=== PATIENT | male | born 1995 | race Asian ===

== ENCOUNTER 2016-05-25 16:44 | Emergency (ER) | payer OTHER ==
[~2016-05-25] VITALS: Ht 175.3 cm; Wt 78.6 kg
[2016-05-25 16:46] VITALS: BP 145/89; PULSE 90; TEMP 36.6; O2SAT 100; Ht 175.3 cm; Wt 78.6 kg
--- NOTE | 2016-05-25 18:44 | EMERGENCY ROOM VISIT NOTE ---
History First contact with patient: 17:00 Chief Complaint: RASH Stated Complaint: SPOTS ON THE SKIN History of Present Illness The patient is a 20 year old male who presents to the Emergency Room with complaints of an itchy rash that started this morning. He woke up with the rash. He denies using any new topical products. He also denies consuming any new foods or drinks. He has not had any recent runny nose, congestion, sore throat or cough. He denies any similar reactions in the past. He denies any pain or drainage from his rash. Review of Systems 10 system review was performed and was negative except for pertinent positives and negatives as indicated in history of present illness Past Medical/Surgical History Medical Problems: (1) No significant past medical history Surgical Problems: (1) No history of previous surgery Family History No significant family history Social History Smoking Status: Never Smoker Alcohol Use: none Marital Status: single Occupation Status: employed Physical Exam Vital Signs Date Time Temp Pulse Resp B/P Pulse Ox O2 Delivery O2 Flow Rate FiO2 05/25/16 16:46 36.6 90 18 145/89 100 Room Air Pain Rating (0-10): 0 Physical Exam CONSTITUTIONAL: Healthy and well nourished. Alert and oriented X 3 with positive affect. HEENT: Normocephalic, atraumatic. Pupils equal, round and reactive. NECK: Full active range of motion without discomfort. RESPIRATORY: Clear to auscultation bilaterally with no wheezing, crackles, rhonchi or stridor. CARDIOVASCULAR: Regular rate and rhythm with no murmurs, rubs or gallops. MUSCULOSKELETAL: Full range of motion of all joints without discomfort. INTEGUMENTARY: Examination shows skin presentation consistent with hives on the left forearm and legs. He also has similar appearance on the torso that is more widespread. No excoriations, vesicles or pustules. NEUROLOGIC: No focal neurologic deficits noted. Medical Decision & Procedures ED Course Patient history and physical exam were performed. Nurse's notes were reviewed. The patient was advised that his rash is consistent with hives. He was provided an ice pack to apply to areas of worst itch and swelling. He was also encouraged to take Benadryl for additional antihistamine relief. He was also instructed to keep cool and avoid hot showers. The patient reports that he has been assigned to Dr. Beaulieu with his insurance, but has not contacted their office for an appointment. He was encouraged to follow-up within is needed for further management. The patient was happy with plan of care, and voiced understanding of all discharge instructions. He refused any Benadryl in the emergency department. Medical Decision Impression Primary Impression: Hives Departure Information Dispostion Home / Self-Care Condition GOOD Referrals Harry Beaulieu M.D. Forms HOME CARE DOCUMENTATION FORM, IMPORTANT VISIT INFORMATION Patient Instructions My [facility], Diphenhydramine Hydrochloride Oral tablet Additional Instructions Benadryl (diphenhydramine) 25-50 mg every 6 hrs for itch. Do not drink or drive while taking Benadryl. Intermittently apply an ice pack for relief of localized swelling and itch. Keep cool - no hot showers. Follow-up with your family doctor (Dr. Beaulieu) in 3-5 days, and especially if symptoms/rash persists longer than 7 days.
== END 2016-05-25 17:20 | disposition home or self-care (01) ==
LOC: C.EDB 16:45 → C.EDD 17:20
DX: L50.9 Urticaria, unspecified (principal)

== ENCOUNTER 2016-10-22 15:44 | Emergency (ER) | payer OTHER ==
[~2016-10-22] VITALS: Ht 177.8 cm; Wt 74.7 kg
[2016-10-22 15:49] VITALS: Ht 177.8 cm; Wt 74.7 kg
[2016-10-22] MEDS ORDERED: SODIUM CHLORIDE 0.9% 1000ML 1,000 ML IV STA (16:04)
[2016-10-22] MEDS ORDERED: DiphenhydrAMINE HCL 50 MG/ML VIAL IV STA (16:04)
[2016-10-22] MEDS ORDERED: PROCHLORPERAZINE 5 MG/ML 2 ML VIAL IV STA (16:04)
[2016-10-22] MEDS ORDERED: KETOROLAC TROMETHAMINE 30 MG/ML VIAL IV STA (16:04)
--- NOTE | 2016-10-22 16:07 | EMERGENCY ROOM VISIT NOTE ---
History Report prepared by Olga: Ale Bright Under the Supervision of: Dr. Garrett Guidry M.D. First contact with patient: 15:57 Chief Complaint: FEVER Stated Complaint: HIGH TEMP IN WHOLE BODY, PAIN IN BONE, DIARRHEA History of Present Illness The patient is a 21 year old male who presents to the Emergency Room with complaints of persistent headache starting last night. He denies any history of frequent headaches. The patient also reports fevers and generalized body aches. He rates a pain intensity of 5/10. He denies runny nose, cough, sore throat, or any other complaints. Source of History: patient Onset: last night Position: head Symptom Intensity: 5/10 Timing: other (persistent) Associated Symptoms: + fevers, + neck pain, No sorethroat, No cough Review of Systems See HPI for pertinent positives & negatives. A total of 10 systems reviewed and were otherwise negative. Past Medical & Surgical Medical Problems: (1) No significant past medical history Surgical Problems: (1) No history of previous surgery Family History No significant family history Social History Smoking Status: Never Smoker Alcohol Use: none Marital Status: single Occupation Status: employed Current/Historical Medications Scheduled Azithromycin (Zithromax), 250 MG PO DAILY Allergies Coded Allergies: No Known Allergies (Unverified , 10/22/16) Physical Exam Vital Signs Date Time Temp Pulse Resp B/P (MAP) Pulse Ox O2 Delivery O2 Flow Rate FiO2 10/22/16 19:20 37.4 114 15 109/76 98 Room Air 10/22/16 18:20 37.2 10/22/16 17:31 112 10/22/16 17:19 110 20 112/71 99 Room Air 10/22/16 16:50 Room Air 10/22/16 15:49 38.2 130 20 113/72 96 Room Air Physical Exam GENERAL: Patient is a healthy-appearing well-nourished HEAD: Normocephalic atraumatic EYES: Ocular movements intact pupils equal and react to light OROPHARYNX mucous membranes are moist no exudates present no erythema or edema present. Able to swallow his own saliva without difficulty. NECK: Supple no nuchal rigidity. No evidence of meningitis or encephalitis on exam. CHEST: Good equal expansion LUNGS: Clear and equal to auscultation CARDIAC: Normal S1 and S2 ABDOMEN: Soft nontender no guarding BACK: No CVA tenderness EXTREMITIES: No pain upon palpation normal muscle strength in all groups no clubbing cyanosis or edema NEURO: Patient is following commands and answering questions appropriately. Alert and oriented x3 Cranial Nerves 2-12 grossly intact Medical Decision & Procedures ER Provider Diagnostic Interpretation: X-ray results as stated below per interpretation by me and the radiologist: CHEST ONE VIEW PORTABLE CLINICAL HISTORY: Fever. COMPARISON STUDY: No previous studies for comparison. FINDINGS: Lung volumes are normal. There is no pneumothorax or pleural effusion. No consolidation is identified. Cardiac size is normal. Mediastinal contours are normal. There is no evidence of pulmonary edema. IMPRESSION: No acute cardiopulmonary findings. Electronically signed by: Rafa Burger M.D. 10/22/2016 4:34 PM Dictated Date/Time: 10/22/2016 4:33 PM Laboratory Results 10/22/16 16:25 Red Blood Count 5.08, Mean Corpuscular Volume 84.4, Mean Corpuscular Hemoglobin 29.3, Mean Corpuscular Hemoglobin Concent 34.7, Mean Platelet Volume 10.3, Neutrophils (%) (Auto) 86.8, Lymphocytes (%) (Auto) 5.9, Monocytes (%) (Auto) 7.0, Eosinophils (%) (Auto) 0.0, Basophils (%) (Auto) 0.1, Neutrophils # (Auto) 15.18, Lymphocytes # (Auto) 1.04, Monocytes # (Auto) 1.22, Eosinophils # (Auto) 0.00, Basophils # (Auto) 0.02 10/22/16 16:25 Test 10/22/16 16:15 10/22/16 16:25 10/22/16 17:05 Influenza Type A (RT-PCR) Neg for Influ A (NEG) Influenza Type A Antigen Neg for Influ A (NEG) Influenza Type B Antigen Neg for Influ B (NEG) Influenza Type B (RT-PCR) Neg for Influ B (NEG) White Blood Count 17.50 K/uL (4.8-10.8) Red Blood Count 5.08 M/uL (4.7-6.1) Hemoglobin 14.9 g/dL (14.0-18.0) Hematocrit 42.9 % (42-52) Mean Corpuscular Volume 84.4 fL (80-100) Mean Corpuscular Hemoglobin 29.3 pg (25-34) Mean Corpuscular Hemoglobin Concent 34.7 g/dl (32-36) Platelet Count 267 K/uL (130-400) Mean Platelet Volume 10.3 fL (7.4-10.4) Neutrophils (%) (Auto) 86.8 % Lymphocytes (%) (Auto) 5.9 % Monocytes (%) (Auto) 7.0 % Eosinophils (%) (Auto) 0.0 % Basophils (%) (Auto) 0.1 % Neutrophils # (Auto) 15.18 K/uL (1.4-6.5) Lymphocytes # (Auto) 1.04 K/uL (1.2-3.4) Monocytes # (Auto) 1.22 K/uL (0.11-0.59) Eosinophils # (Auto) 0.00 K/uL (0-0.5) Basophils # (Auto) 0.02 K/uL (0-0.2) RDW Standard Deviation 39.8 fL (36.4-46.3) RDW Coefficient of Variation 12.9 % (11.5-14.5) Immature Granulocyte % (Auto) 0.2 % Immature Granulocyte # (Auto) 0.04 K/uL (0.00-0.02) Anion Gap 10.0 mmol/L (3-11) Est Creatinine Clear Calc Drug Dose 107.8 ml/min Estimated GFR () 109.1 Estimated GFR (Non- 94.1 BUN/Creatinine Ratio 10.7 (10-20) Calcium Level 9.2 mg/dl (8.5-10.1) Total Bilirubin 0.7 mg/dl (0.2-1) Direct Bilirubin 0.2 mg/dl (0-0.2) Aspartate Amino Transf (AST/SGOT) 24 U/L (15-37) Alanine Aminotransferase (ALT/SGPT) 41 U/L (12-78) Alkaline Phosphatase 74 U/L (45-117) Total Protein 7.6 gm/dl (6.4-8.2) Albumin 3.7 gm/dl (3.4-5.0) Lyme Disease IgG Antibody NEG (NEG) Lyme Disease IgM Antibody NEG (NEG) Monoscreen NEG (NEG) Urine Color DK YELLOW Urine Appearance CLEAR (CLEAR) Urine pH 5.0 (4.5-7.5) Urine Specific Sharon > 1.045 (1.000-1.030) Urine Protein 2+ (NEG) Urine Glucose (UA) TRACE (NEG) Urine Ketones 1+ (NEG) Urine Occult Blood 2+ (NEG) Urine Nitrite NEG (NEG) Urine Bilirubin NEG (NEG) Urine Urobilinogen NEG (NEG) Urine Leukocyte Esterase TRACE (NEG) Urine WBC (Auto) 1-5 /hpf (0-5) Urine RBC (Auto) 10-30 /hpf (0-4) Urine Hyaline Casts (Auto) 5-10 /lpf (0-5) Urine Epithelial Cells (Auto) >30 /lpf (0-5) Urine Bacteria (Auto) NEG (NEG) Urine Renal Epithelial Cells /lpf (0-5) Urine Yeast (Auto) (NONE PRSENT) Labs reviewed by ED physician. Medications Administered Medications (Trade) Dose Ordered Sig/Jodi Route Start Time Stop Time Status Last Admin Dose Admin Sodium Chloride 1,000 ml @ 999 mls/hr Q1H1M STAT IV 10/22/16 16:04 10/22/16 17:04 DC 10/22/16 17:07 999 MLS/HR Ketorolac Tromethamine (Toradol Inj) 30 mg NOW STAT IV 10/22/16 16:04 10/22/16 16:07 DC 10/22/16 17:09 30 MG Prochlorperazine Edisylate (Compazine Inj) 10 mg NOW STAT IV 10/22/16 16:04 10/22/16 16:07 DC 10/22/16 17:07 10 MG Diphenhydramine HCl (Benadryl Inj) 50 mg NOW STAT IV 10/22/16 16:04 10/22/16 16:07 DC 10/22/16 17:10 50 MG Ceftriaxone Sodium (Rocephin Inj) 1 gm NOW STAT IV 10/22/16 16:43 10/22/16 16:45 DC 10/22/16 17:08 1 GM Azithromycin (Zithromax Tab) 500 mg NOW STAT PO 10/22/16 16:43 10/22/16 16:45 DC 10/22/16 17:07 500 MG ED Course 1557: Past medical records reviewed. The patient was evaluated in room C10. A complete history and physical examination was performed. 1604: Benadryl Inj 50 mg IV, Compazine Inj 10 mg IV, Toradol Inj 30 mg IV, Sodium Chloride 1000 ml @ 999 mls/hr IV 1643: Azithromycin 500 mg PO, Rocephin Inj 1 gm IV 1713: I explained to him at length that he will need a lumbar puncture if it is the worst headache of his life. He explained the risks and benefits of performing a lumbar puncture. He refused and reported that his headache is now much better. 1858: Upon reexamination the patient is feeling much better. I discussed results and treatment plan with the patient. He verbalizes agreement and understanding. The patient is ready for discharge. Medical Decision Differential diagnosis: Etiologies such as viral syndrome, otitis, pharyngitis, pneumonia, influenza, meningitis, urinary tract infection, sepsis, bacteremia, as well as others were entertained. -This is a 21-year-old male who presents emergency department complaining of fevers. Patient is complaining of a headache but states it is not worst headache of his life I stressed that I could not rule out meningitis as the patient has an elevation in his white blood count is febrile is complaining of a headache however the patient is adamantly refusing a lumbar puncture. I stressed the fact that the patient needs to return for a lumbar puncture if he is having a severe headache. After Toradol Compazine and Benadryl patient is feeling much better and I believe he can be safely discharged home. The patient was started on a Z-David for upper respiratory infection. Patient was in agreement with the treatment plan. Medication Reconcilliation Current Medication List: was personally reviewed by me Blood Pressure Screening Patient's blood pressure: Normal blood pressure Impression Primary Impression: Fever Scribe Attestation The scribe's documentation has been prepared under my direction and personally reviewed by me in its entirety. I confirm that the note above accurately reflects all work, treatment, procedures, and medical decision making performed by me. Departure Information Dispostion Home / Self-Care Prescriptions Azithromycin (ZITHROMAX) 250 Mg Tab 250 MG PO DAILY, #4 TAB Prov: Garrett Guidry MD 10/22/16 Referrals Harry Beaulieu M.D. (PCP) Forms HOME CARE DOCUMENTATION FORM, IMPORTANT VISIT INFORMATION Patient Instructions ED Dehydration, ED Fever Control, Fever - [facility], [facility] Additional Instructions Increase fluids next 48 hours Return if you develop severe headache and neck pain Increase fluids next 48 hours Take 600 mg Ibuprofen every 6 hours Take 1000 mg Tylenol every 6 hours Culture results are usually available in approx 48 hours You have been examined and treated today on an emergency basis only. This is not a substitute for, or an effort to provide, complete comprehensive medical care. It is impossible to recognize and treat all injuries or illnesses in a single emergency department visit. It is therefore important that you follow up closely with Dr Beaulieu. Call as soon as possible for an appointment. Thank you for your time and consideration. I look forward to speaking with you again soon. Please don't hesitate to call us if you have any questions. Problem Qualifiers Primary Impression: Fever Fever type: unspecified Qualified Codes: R50.9 - Fever, unspecified
--- NOTE | 2016-10-22 16:35 | DIAGNOSTIC IMAGING REPORT ---
CHEST ONE VIEW PORTABLE CLINICAL HISTORY: Fever. COMPARISON STUDY: No previous studies for comparison. FINDINGS: Lung volumes are normal. There is no pneumothorax or pleural effusion. No consolidation is identified. Cardiac size is normal. Mediastinal contours are normal. There is no evidence of pulmonary edema. IMPRESSION: No acute cardiopulmonary findings. Electronically signed by: Rafa Burger M.D. 10/22/2016 4:34 PM Dictated Date/Time: 10/22/2016 4:33 PM
[2016-10-22 16:41] LABS: BASO % 0.1 %; BASO ABS # 0.02 K/uL (0-0.2); COMPLETE YES; HEMATOCRIT 42.9 % (42-52); IG% 0.2 %; LYMPH % 5.9 %; LYMPH ABS # 1.04 K/uL (1.2-3.4); MEAN CELL VOLUME 84.4 fL (80-100); MEAN CORPUSCULAR HEMOGLOBIN 29.3 pg (25-34); MEAN CORPUSCULAR HGB CONC 34.7 g/dl (32-36); MEAN PLATELET VOLUME 10.3 fL (7.4-10.4); NEUT % 86.8 %; PLATELET COUNT 267 K/uL (130-400); RED BLOOD COUNT 5.08 M/uL (4.7-6.1)
[2016-10-22] MEDS ORDERED: AZITHROMYCIN 250 MG TAB PO STA (16:43)
[2016-10-22] MEDS ORDERED: CEFTRIAXONE SOD INJ 1 GM ADDVIAL IV STA (16:43)
[2016-10-22 17:08] LABS: BUN/CREATININE RATIO 10.7 (10-20); CALCIUM 9.2 mg/dl (8.5-10.1); CREATININE 1.1 mg/dl (0.60-1.40); POTASSIUM 3.4 mmol/L (3.5-5.1)
[2016-10-22 17:33] LABS: LYME DISEASE AB IGG NEG (NEG); LYME DISEASE AB IGM NEG (NEG)
[2016-10-22 17:33] LABS: URINE APPEARANCE CLEAR (CLEAR); URINE COLOR DK YELLOW; URINE EPITHELIAL CELL AUTO >30 /lpf (0-5); URINE NITRITE NEG (NEG); URINE SPECIFIC GRAVITY > 1.045 (1.000-1.030); UROBILINOGEN NEG (NEG)
[2016-10-22 17:47] LABS: MANUAL MICROSCOPIC REQUIRED? NO; REVIEW REQ? YES
[2016-10-22 17:48] LABS: URINE BILIRUBIN NEG (NEG)
[2016-10-22 19:00] LABS: INFLUENZA A PCR Neg for Influ A (NEG); INFLUENZA B PCR Neg for Influ B (NEG)
[2016-10-22] MEDS ORDERED: AZIT250T5 PO (19:02)
[2016-10-22 19:20] VITALS: BP 109/76; PULSE 114; TEMP 37.4; O2SAT 98
[2016-10-29 23:36] LABS: EBV EARLY ANTIGEN AB <9.00 U/ML; EHRLICHIA CHAFF IGG AB <1:64 (<1:64); EHRLICHIA CHAFF IGM AB <1:20 (<1:20); EPSTEIN BARR VIR CAPSID IGG <18.00 U/ML
== END 2016-10-22 19:30 | disposition home or self-care (01) ==
LOC: C.EDB 15:49 → C.EDC 19:30
DX: R50.9 Fever, unspecified (principal)